=== PATIENT | female | born 1965 | race African-American/Black ===

== ENCOUNTER 2019-02-10 11:40 | Emergency (ER) | payer BC, SELFPAY ==
--- NOTE | 2019-02-10 12:27 | RAD ---
RADIOGRAPH CHEST 1 VIEW: DATE: 02/10/2019 HISTORY: 53-year-old female with chest pain FINDINGS: There are no airspace densities, pulmonary edema, pneumothorax, or cardiomegaly. The lateral costophr enic angles are sharp. IMPRESSION: No acute cardiopulmonary findings.
[2019-02-10 12:28] LABS: #Lymphocytes 1.2 thou/uL (1.20-3.40); #Monocytes 0.4 thou/uL (0.11-0.59); #Neutrophils 7.2 thou/uL (1.40-6.50); %Basophils 0.5 % (0.0-1.0); %Eosinophils 0.3 % (0.0-10.0); %Lymphocytes 13.1 % (21.0-51.0); %Neutrophils 82.1 % (42.0-75.0); Hemoglobin 14.8 g/dL (12.0-16.0); Mean Corpuscular Hemoglobin 29.3 pg (27.0-31.0); Mean Corpuscular Volume 86.1 fL (78.0-98.0); Mean Platelet Volume 8.1 fL (7.4-10.4); Platelet Count 216 thou/uL (130-400); RBC Distribution Width 12.5 % (11.5-14.5); Red Blood Cell (RBC) Count 5.06 mill/uL (4.20-5.40); White Blood Cell (WBC) Count 8.8 thou/uL (4.8-10.8)
[2019-02-10 13:44] LABS: Albumin 4.2 g/dL (3.5-5.0)
[2019-02-10 13:45] LABS: Chloride 106 mmol/L (98-107); Potassium 4.1 mmol/L (3.5-5.1); Sodium 138 mmol/L (136-145)
[2019-02-10 13:46] LABS: Calcium 10.7 mg/dL (7.8-10.44)
[2019-02-10 13:47] LABS: Globulin 3.6 g/dL (2.4-3.5); Glucose 98 mg/dL (70-105); Protein, Total 7.8 g/dL (6.0-8.3)
[2019-02-10 13:48] LABS: Anion Gap 10 mmol/L (10-20); Carbon Dioxide 26 mmol/L (22-29)
[2019-02-10 13:49] LABS: Bilirubin, Total 1.2 mg/dL (0.2-1.2)
[2019-02-10 13:50] LABS: Alkaline Phosphatase 121 U/L (40-150); Calc. Creatinine Clearance 0 mL/min (70-130); Estimated GFR-MDRD Greater than 90
[2019-02-10 13:51] LABS: BUN (Urea Nitrogen) 12 mg/dL (9.8-20.1)
[2019-02-10 13:52] LABS: AST (SGOT) 188 U/L (5-34)
[2019-02-10 13:53] LABS: ALT (SGPT) 128 U/L (8-55); CK (CPK) 129 U/L (29-168); Lipase 7 U/L (8-78)
[2019-02-10] MEDS ORDERED: Mag-Al 1200 mg/1200 mg/30 ML UDCUP ONE (13:53)
[2019-02-10] MEDS ORDERED: Famotidine 20 MG TAB ONE (13:53)
[2019-02-10] MEDS ORDERED: Lidocaine Viscous Sol 2% 15 ml UD Cup ONE (13:53)
== END 2019-02-10 17:10 | disposition home or self-care (01) ==
LOC: ERS 11:40
DX: R10.13 Epigastric pain (principal); R94.5 Abnormal results of liver function studies
CPT/HCPCS: 36415; 71045; 80053; 82550; 83690; 84484; 85025; 93005; 94760

== ENCOUNTER 2021-03-17 13:08 | Emergency (ER) | payer OTHER, SELFPAY | END 2021-03-17 17:11 | disposition home or self-care (01) | LOC: ERS 13:08 | DX: S52.502A Unspecified fracture of the lower end of left radius, initial encounter for closed fracture (principal); W01.10XA Fall on same level from slipping, tripping and stumbling with subsequent striking against unspecified object, initial encounter; Z79.899 Other long term (current) drug therapy; I10 Essential (primary) hypertension | CPT/HCPCS: 29125 ==

== ENCOUNTER 2023-07-14 11:20 | Outpatient (CLI) | payer BC | END 2023-07-14 11:21 | disposition home or self-care (01) | LOC: BICMAMMO 11:20 | PROVIDERS: ATTEND Nurse Practitioner Family | DX: Z12.31 Encounter for screening mammogram for malignant neoplasm of breast (principal); Z80.3 Family history of malignant neoplasm of breast | CPT/HCPCS: 77063; 77067 ==